=== PATIENT | male | born 1990 | race Caucasian/White ===

== ENCOUNTER 2023-12-02 15:53 | Emergency (ER) | payer OTHER, SELFPAY ==
[2023-12-02 16:11] VITALS: BP 136/87; PULSE 73; RESP 18; TEMP 36.1; O2SAT 97; BMI 34.0
--- NOTE | 2023-12-02 17:12 | PC.NURSE ---
patient is a healthy male who 4-5 days ago had dog jump off his ball. His pain is 7/10 and is controlled with advil. his last dose was at 0800 today. He states that he has blood in his semen with pain during ejaculation. no pain while urinating and no blood in urine that he can see. he denies signs of trauma to his testicles with no visible swelling, bruising, or watson of any kind. he denies new sexual partners, since he is . He states the pain has gotten worse over the last 5 days.
--- NOTE | 2023-12-02 17:25 | ED_ITS ---
HPI - General Adult <Char King MD - Last Filed: 12/24/23 04:17> General Chief complaint: Urogenital-Male Stated complaint: states man parts are messed up Time Seen by Provider: 12/02/23 17:18 Source: patient Mode of arrival: Family Vehicle History of Present Illness HPI narrative: Otherwise healthy 33-year-old young man who had his large laboratory retriever dog jumped off his lap with the hind legs catching his testicles approximately 4 days ago. There has been some pain and some tenderness he has been using ibuprofen he did not think much of this until he noticed some blood in his ejaculate today. Comes in for further evaluation. No difficulties with voiding, erections, significant swelling or hematoma. Related Data Allergies Allergy/AdvReac Type Severity Reaction Status Date / Time No Known Drug Allergies Allergy Verified 12/02/23 16:17 Review of Systems <Char King MD - Last Filed: 12/24/23 04:17> Review of Systems Narrative: Pertinent positive and negative findings as per HPI Patient History <Char King MD - Last Filed: 12/24/23 04:17> Social History Smoking Status: Former smoker Smoking Status: Former smoker tobacco type: vaping alcohol intake frequency: 0-2 drinks per day Substance Use Type: does not use Exam <Char King MD - Last Filed: 12/24/23 04:17> Initial Vital Signs Initial Vital Signs: Vital Signs Temperature 97 F L 12/02/23 16:11 Pulse Rate 73 12/02/23 16:11 Respiratory Rate 18 12/02/23 16:11 Blood Pressure 136/87 12/02/23 16:11 Pulse Oximetry 97 12/02/23 16:11 Oxygen Delivery Method Room Air 12/02/23 16:11 General: Alert appropriate in no acute distress Respiratory: Able to speak in full sentences, no obvious respiratory distress Skin: No obvious rashes, warm and dry Neurologic: Grossly intact no obvious asymmetries or abnormalities Psych: appropriate insight and affect, cooperative Genitals: Left epididymis is slightly tender and the spermatic cord is slightly tender on the left side. No obvious bruising, warmth redness or erythema. No abrasions to penis or mons <Miguel Taylor DO - Last Filed: 12/02/23 20:28> Initial Vital Signs Initial Vital Signs: Vital Signs Temperature 97 F L 12/02/23 16:11 Pulse Rate 73 12/02/23 16:11 Respiratory Rate 18 12/02/23 16:11 Blood Pressure 136/87 12/02/23 16:11 Pulse Oximetry 97 12/02/23 16:11 Oxygen Delivery Method Room Air 12/02/23 16:11 Course <Char King MD - Last Filed: 12/24/23 04:17> Orders Ordered: ED Orders 12/02/23 17:34 US scrotum Stat 12/02/23 18:50 Urine Microscopic Stat Vital Signs Vital signs: Vital Signs - 8 hr 12/02/23 16:11 12/02/23 19:23 12/02/23 19:24 Temperature 97 F L Pulse Rate 73 71 71 Respiratory Rate 18 14 14 Blood Pressure 136/87 130/88 130/88 Pulse Oximetry 97 98 98 Oxygen Delivery Method Room Air Room Air Room Air <Miguel Taylor DO - Last Filed: 12/02/23 20:28> Orders Ordered: ED Orders 12/02/23 17:34 US scrotum Stat 12/02/23 18:50 Urine Microscopic Stat Vital Signs Vital signs: Vital Signs - 8 hr 12/02/23 16:11 12/02/23 19:23 12/02/23 19:24 Temperature 97 F L Pulse Rate 73 71 71 Respiratory Rate 18 14 14 Blood Pressure 136/87 130/88 130/88 Pulse Oximetry 97 98 98 Oxygen Delivery Method Room Air Room Air Room Air Medical Decision Making <Char King MD - Last Filed: 12/24/23 04:17> Lab Data Labs: Lab Results 12/02/23 Range/Units 18:50 Urine RBC None seen (0-5/HPF) Urine WBC 0-1/hpf (0-5/HPF) Ur Squamous Epith Cells 0-1 /hpf (0-5/HPF) Urine Bacteria Occasional (0-1) (None) Urine Mucus 3+ H (Negative) Ur Culture Indicated? Cult not indicated Vol Urine Centrifuged 10ml (spun) Urine Dip Bedside Urine Glucose Negative Bedside Urine Bilirubin - Negative Bedside Urine Ketone +++ 80 Urine Specific [place] 1.030 Bedside Urine Occult Blood - Negative Bedside Urine pH 5.5 Bedside Urine Protein +/- 15 Bedside Urine Urobilinogen - Negative Bedside Urine Nitrite - Negative Bedside Urine Leukocytes - Negative Esterase Point of care testing: Urine Dip Bedside Urine Glucose Negative Bedside Urine Bilirubin - Negative Bedside Urine Ketone +++ 80 Urine Specific [place] 1.030 Bedside Urine Occult Blood - Negative Bedside Urine pH 5.5 Bedside Urine Protein +/- 15 Bedside Urine Urobilinogen - Negative Bedside Urine Nitrite - Negative Bedside Urine Leukocytes - Negative Esterase MDM Narrative Medical decision making narrative: Otherwise healthy 33-year-old gentleman with testicular injury 4 days ago and bloody ejaculate today. He is declined any pain medications in the ER Ultrasound is currently pending, care is turned over to Dr. Taylor at change of shift <Miguel Taylor, DO - Last Filed: 12/02/23 20:28> Lab Data Lab results reviewed: Yes I reviewed the patient's lab results. Labs: Lab Results 12/02/23 Range/Units 18:50 Urine RBC None seen (0-5/HPF) Urine WBC 0-1/hpf (0-5/HPF) Ur Squamous Epith Cells 0-1 /hpf (0-5/HPF) Urine Bacteria Occasional (0-1) (None) Urine Mucus 3+ H (Negative) Ur Culture Indicated? Cult not indicated Vol Urine Centrifuged 10ml (spun) Urine Dip Bedside Urine Glucose Negative Bedside Urine Bilirubin - Negative Bedside Urine Ketone +++ 80 Urine Specific [place] 1.030 Bedside Urine Occult Blood - Negative Bedside Urine pH 5.5 Bedside Urine Protein +/- 15 Bedside Urine Urobilinogen - Negative Bedside Urine Nitrite - Negative Bedside Urine Leukocytes - Negative Esterase Point of care testing: Urine Dip Bedside Urine Glucose Negative Bedside Urine Bilirubin - Negative Bedside Urine Ketone +++ 80 Urine Specific [place] 1.030 Bedside Urine Occult Blood - Negative Bedside Urine pH 5.5 Bedside Urine Protein +/- 15 Bedside Urine Urobilinogen - Negative Bedside Urine Nitrite - Negative Bedside Urine Leukocytes - Negative Esterase Imaging Data scrotal US: Radiologist's Impression: PROCEDURE: US SCROTUM INDICATIONS: left testicle pain after trauma, bloody ejaculate TECHNIQUE: Real-time scanning was performed of the scrotum and testicles, with image documentation. Color and pulse Doppler interrogation was performed of both testicles. COMPARISON: None. FINDINGS: Right: Testicle is normal in size at 5.5 x 2.2 x 3.5 cm, and homogenous in echotexture. Epididymis is normal in overall size and morphology. No hydrocele or varicoceles. Overlying scrotal skin is normal in thickness. Left: Testicle is normal in size at 5.5 x 2.7 x 3.3 cm, and homogeneous in echotexture. Epididymis is normal in overall size and morphology. No hydrocele or varicoceles. Overlying scrotal skin is normal in thickness. Doppler: Color and pulse Doppler demonstrate normal and symmetric arterial flow in both testicles. IMPRESSION: Unremarkable ultrasound examination of scrotum and bilateral testes. No evidence of testicular torsion. [facility] Narrative Medical decision making narrative: Otherwise healthy 33-year-old gentleman with testicular injury 4 days ago and bloody ejaculate today. He is declined any pain medications in the ER Ultrasound is currently pending, care is turned over to Dr. Taylor at change of shift Dr Taylor; received turned over. Review patient's history and physical exam. Ultrasound today shows no testicular acute pathology to include torsion/rupture. I have low suspicion for infection. His urinalysis is unremarkable. No indication for antibiotics. No indication for admission to the hospital or emergent urologic consultation. I suspect that his symptoms will improve with time. He was given return precautions. He expressed understanding and agre ement with plan. Discharge Plan Departure Patient Disposition: Home Clinical Impression: Testicular injury Instructions: DI for Orchitis Activity Restrictions/Additional Instructions: You can continue to take Tylenol/ibuprofen as needed for any discomfort. Wearing supportive clothing and using ice can be helpful as well. Return to the emergency department for new or worsening symptoms. Referrals: ProviderSharifa [Primary Care Provider] - Stand Alone Forms: Patient Portal/API
--- NOTE | 2023-12-02 17:34 | DI.US.S_ITS ---
PROCEDURE: US SCROTUM INDICATIONS: left testicle pain after trauma, bloody ejaculate TECHNIQUE: Real-time scanning was performed of the scrotum and testicles, with image documentation. Color and pulse Doppler interrogation was performed of both testicles. COMPARISON: None. FINDINGS: Right: Testicle is normal in size at 5.5 x 2.2 x 3.5 cm, and homogenous in echotexture. Epididymis is normal in overall size and morphology. No hydrocele or varicoceles. Overlying scrotal skin is normal in thickness. Left: Testicle is normal in size at 5.5 x 2.7 x 3.3 cm, and homogeneous in echotexture. Epididymis is normal in overall size and morphology. No hydrocele or varicoceles. Overlying scrotal skin is normal in thickness. Doppler: Color and pulse Doppler demonstrate normal and symmetric arterial flow in both testicles. IMPRESSION: Unremarkable ultrasound examination of scrotum and bilateral testes. No evidence of testicular torsion. Dictated by: Breezy Barros M.D. on 12/02/2023 at 19:07 Approved by: Breezy Barros M.D. on 12/02/2023 at 19:08
[2023-12-02 19:23] VITALS: BP 130/88; PULSE 71; RESP 14; O2SAT 98
[2023-12-02 19:24] VITALS: BP 130/88; PULSE 71; RESP 14; O2SAT 98
[2023-12-02 19:30] LABS: Urine Volume 10mL (spun)
[2023-12-02 19:31] LABS: Bacteria Urine Occasional (0-1); Culture Indicated Urine Cult Not Indicated; Mucus Urine 3+ (Negative); RBC Urine None Seen (0-5/HPF); Squamous Epithelial Cell Urine 0-1 /HPF (0-5/HPF); WBC Urine 0-1/HPF (0-5/HPF)
== END 2023-12-02 19:34 | disposition home or self-care (01) ==
PROVIDERS: Emergency Provider Emergency Medicine
DX: S39.94XA Unspecified injury of external genitals, initial encounter (principal); X58.XXXA Exposure to other specified factors, initial encounter
CPT/HCPCS: 76870; 81003; 81015; 99283